=== PATIENT | male | born 1985 | race African-American/Black ===

== ENCOUNTER 2019-08-07 20:14 | Emergency (ER) | payer OTHER, SELFPAY ==
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
[2019-08-07 20:29] VITALS: BP 128/102; PULSE 84; RESP 13; TEMP 37; O2SAT 97
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
[2019-08-07] MEDS: ACETAMINOPHEN 500 MG TABLET 1000 MG PO (21:39)
[2019-08-07] MEDS: IBUPROFEN 600 MG TABLET PO (21:40)
[2019-08-07 22:36] VITALS: BP 126/95; PULSE 72; RESP 16; O2SAT 99
== END 2019-08-07 23:00 | disposition home or self-care (01) ==
PROVIDERS: Emergency Provider Emergency Medicine
DX: S01.111A Laceration without foreign body of right eyelid and periocular area, initial encounter (principal); S09.90XA Unspecified injury of head, initial encounter; V49.40XA Driver injured in collision with unspecified motor vehicles in traffic accident, initial encounter
CPT/HCPCS: 12013; 73562; 99283; A9270